=== PATIENT | female | born 1960 | race Caucasian/White ===

== ENCOUNTER → 2022-03-21 14:44 | Outpatient (BNVA) | payer MEDICAID, SELFPAY | PROVIDERS: PCP Internal Medicine; Visit Provider Nurse Practitioner Psychiatric/Mental Health | DX: F11.20 Opioid dependence, uncomplicated (principal) | CPT/HCPCS: 99212 ==

== ENCOUNTER → 2022-03-22 13:51 | Outpatient (BNVA) | payer MEDICAID, SELFPAY | PROVIDERS: PCP Internal Medicine; Visit Provider Nurse Practitioner Psychiatric/Mental Health | DX: Z13.89 Encounter for screening for other disorder (principal) ==

== ENCOUNTER → 2022-03-28 14:08 | Outpatient (BNVA) | payer MEDICAID, SELFPAY | PROVIDERS: PCP Internal Medicine; Visit Provider Nurse Practitioner Psychiatric/Mental Health | DX: F11.20 Opioid dependence, uncomplicated (principal); Z51.81 Encounter for therapeutic drug level monitoring; Z79.899 Other long term (current) drug therapy | CPT/HCPCS: 99212 ==

== ENCOUNTER 2022-04-11 14:51 | Outpatient (REF) | payer MEDICAID, SELFPAY ==
[2022-04-11 16:25] LABS: Alanine Aminotransferase 13 U/L (0-31); Alkaline Phosphatase 59 U/L (39-117); Aspartate Amino Transferase 17 U/L (5-31); Bilirubin Direct 0.2 mg/dL (0.0-0.5); Bilirubin Total 0.6 mg/dL (0.0-1.0); Total Protein 6.3 g/dL (6.5-8.0)
== END 2022-04-11 14:52 | disposition home or self-care (01) ==
LOC: HO.LAB 14:51
PROVIDERS: PCP Internal Medicine; Visit Provider Nurse Practitioner Psychiatric/Mental Health
DX: F11.20 Opioid dependence, uncomplicated (principal); Z51.81 Encounter for therapeutic drug level monitoring; Z79.899 Other long term (current) drug therapy
CPT/HCPCS: 36415; 80076; 99212

== ENCOUNTER → 2022-05-20 13:02 | Outpatient (BNVA) | payer OTHER, SELFPAY | PROVIDERS: PCP Internal Medicine; Visit Provider Nurse Practitioner Psychiatric/Mental Health | DX: F11.20 Opioid dependence, uncomplicated (principal) | CPT/HCPCS: 99212 ==

== ENCOUNTER → 2022-06-17 12:58 | Outpatient (BNVA) | payer OTHER, SELFPAY | PROVIDERS: PCP Internal Medicine; Visit Provider Nurse Practitioner Psychiatric/Mental Health | DX: F11.20 Opioid dependence, uncomplicated (principal); Z51.81 Encounter for therapeutic drug level monitoring; Z79.899 Other long term (current) drug therapy | CPT/HCPCS: 99212 ==

== ENCOUNTER → 2022-08-12 13:16 | Outpatient (BNVA) | payer OTHER, SELFPAY | PROVIDERS: PCP Internal Medicine; Visit Provider Nurse Practitioner Psychiatric/Mental Health | DX: Z51.81 Encounter for therapeutic drug level monitoring (principal); F11.20 Opioid dependence, uncomplicated | CPT/HCPCS: 99212 ==

== ENCOUNTER 2022-10-07 09:54 | Outpatient (AMB) | payer OTHER, SELFPAY ==
--- NOTE | 2022-10-07 09:54 | MHC.OFFVIS ---
Intake Vital Signs 10/07/22 10:01 BP 110/74 Blood Pressure Location Lt radial Position Sitting Pulse 51 Pulse Source Pulse Oximeter Pulse Oximetry (%) 96 Oxygen Delivery Method Room Air Intake Visit Reasons: mat visit Intake Note: The patient presents for a mat visit Research Lab Assistant Required: No Allergies fluticasone [From Advair Diskus] Allergy (Mild, Unverified 10/07/22 10:02) UNKNOWN salmeterol [From Advair Diskus] Allergy (Mild, Unverified 10/07/22 10:02) UNKNOWN azithromycin [From ZITHROMAX] Allergy (Unknown, Unverified 10/07/22 10:02) AGITATION Do you need a note to return to daycare/school/sports/work: No HPI mat visit HPI Details Patient presents for follow-up. Currently prescribed Suboxone 4 mg b.i.d.. Patient very tearful during visit discussing miscommunication with her daughter. Processed with patient. No issues or concerns related to Suboxone Review of Systems Const Reports as per HPI and Reports no additional complaints Physical Exam Vital Signs: Last Vital Signs Pulse 51 10/07/22 10:01 BP 110/74 10/07/22 10:01 Pulse Ox 96 10/07/22 10:01 Oxygen Delivery Method Room Air 10/07/22 10:01 Const Other: General: cooperative, healthy appearing, comfortable, no acute distress, well developed and alert Nutritional Appearance: well nourished Orientation/consciousness: patient oriented x3 Limitations: no limitations Neuro General: patient oriented x3 Psych Appearance: grossly normal Mental Status: mental status grossly normal Speech and movement: Normal speech and movement present Affect: Sad affect present Attitude: cooperative Thought process: Normal thought process present Thought content: Normal thought content present Insight: Good insight present (Psych) Judgement: Good judgement present (Psych) Assessment & Plan Assessment & Plan (1) Opioid dependence: Code(s): F11.20 - Opioid dependence, uncomplicated Plan: Continue Suboxone at current dose Follow-up 8 weeks Medications: Refilled buprenorphine-naloxone 4-1 mg (Suboxone) 1 film sublingual BID 60 ea 1RF Coding Level of Care Code Est Pt Level 3 (74168) Diagnoses Opioid dependence F11.20
[2022-10-07 10:01] VITALS: BP 110/74; PULSE 51; O2SAT 96
== END 2022-10-07 10:38 | disposition home or self-care (01) ==
LOC: HO.HCC 09:54
PROVIDERS: PCP Internal Medicine; Visit Provider Nurse Practitioner Psychiatric/Mental Health
DX: F11.20 Opioid dependence, uncomplicated (principal)
CPT/HCPCS: 99213

== ENCOUNTER → 2022-10-07 09:54 | Outpatient (BNVA) | payer OTHER, SELFPAY | PROVIDERS: PCP Internal Medicine; Visit Provider Nurse Practitioner Psychiatric/Mental Health | DX: F11.20 Opioid dependence, uncomplicated (principal) | CPT/HCPCS: 99212 ==

== ENCOUNTER 2022-12-02 09:51 | Outpatient (AMB) | payer OTHER, SELFPAY ==
--- NOTE | 2022-12-02 09:56 | MHC.OFFVIS ---
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 Review of Systems Const Reports as per HPI and Reports no additional complaints Physical Exam Vital Signs: Last Vital Signs Pulse 84 12/02/22 10:01 BP 126/80 12/02/22 10:01 Pulse Ox 96 12/02/22 10:01 Oxygen Delivery Method Room Air 12/02/22 10:01 Assessment & Plan Assessment & Plan (1) Opioid dependence: Code(s): F11.20 - Opioid dependence, uncomplicated Plan: Continue Suboxone at current dose several refills on medication, patient to call when/ she returns to [place] Medications: Refilled buprenorphine-naloxone 4-1 mg (Suboxone) 1 film sublingual BID 60 ea 5RF Coding Level of Care Code Est Pt Level 3 (44312) Diagnoses Opioid dependence F11.20
[2022-12-02 10:01] VITALS: BP 126/80; PULSE 84; O2SAT 96
== END 2022-12-02 10:51 | disposition home or self-care (01) ==
PROVIDERS: PCP Internal Medicine; Visit Provider Nurse Practitioner Psychiatric/Mental Health
DX: F11.20 Opioid dependence, uncomplicated (principal)
CPT/HCPCS: 99213

== ENCOUNTER → 2022-12-02 09:51 | Outpatient (BNVA) | payer OTHER, SELFPAY | PROVIDERS: PCP Internal Medicine; Visit Provider Nurse Practitioner Psychiatric/Mental Health | DX: F11.20 Opioid dependence, uncomplicated (principal); Z51.81 Encounter for therapeutic drug level monitoring; Z79.899 Other long term (current) drug therapy | CPT/HCPCS: 99212 ==

== ENCOUNTER 2023-06-09 13:03 | Outpatient (AMB) | payer OTHER, SELFPAY ==
--- NOTE | 2023-06-09 13:04 | A.OFFVISCC_ITS ---
Intake Visit Reasons: MAT Tele Allergies fluticasone [From Advair Diskus] Allergy (Mild, Unverified 12/02/22 09:56) UNKNOWN salmeterol [From Advair Diskus] Allergy (Mild, Unverified 12/02/22 09:56) UNKNOWN azithromycin [From ZITHROMAX] Allergy (Unknown, Unverified 12/02/22 09:56) AGITATION HPI HPI MAT Tele: Details: Patient presents for telehealth Verbalizing worsening anxiety secondary to running out of buprenorphine Last seen by this chief underwriter in November at which time patient was moving to [place] Several refills provided to patient and pt planned to establish care in [place] Today, patient tearful reporting that living situation in [place] is not what she expected and she is planning to come back to [place] No date to move back--requesting assistance with current sx She still has [place] insurance, which is why she never established care there This chief underwriter explained to patient that prescription could not be sent to [place] (controlled substance) Encouraged patient to seek care in ED and explain sx as withdrawal. Advised to ask providers for resources on how to continue medication or how to mange withdrawal. Patient reporting that she has no transportation and is dependant on daughter for transportation Again, reinforced presenting to ED to manage sx Review of Systems Const Reports as per HPI Telehealth Telehealth Telehealth Platform: Telephone Location of provider rendering services: practice address Location of patient: other Patient Identification confirmed using: Name, : Yes Telehealth method: voice only Patient verbally consented to treatment: Yes Patient verbally consented to billing insurance company: Yes Assessment & Plan Assessment & Plan (1) Opioid dependence: Code(s): F11.20 - Opioid dependence, uncomplicated Category: Medical Plan: * encouraged patient to present to ED * no follow up at this time
== END 2023-06-09 13:56 | disposition home or self-care (01) ==
PROVIDERS: PCP Internal Medicine; Visit Provider Nurse Practitioner Psychiatric/Mental Health
DX: F11.20 Opioid dependence, uncomplicated (principal)
CPT/HCPCS: 99212

== ENCOUNTER → 2023-06-09 13:03 | Outpatient (BNVA) | payer OTHER, SELFPAY | PROVIDERS: PCP Internal Medicine; Visit Provider Nurse Practitioner Psychiatric/Mental Health ==